=== PATIENT | female | born 1985 | race Caucasian/White ===

== ENCOUNTER 2023-12-05 12:46 | Emergency (ER) | payer OTHER ==
[~2023-12-05] VITALS: Ht 162.6 cm; Wt 81.7 kg
[2023-12-05] MEDS ORDERED: Diphth,Pertuss(Acell),Tet Vac 0.5 ML VIAL IM ONE ×2 (13:05→17:35)
[2023-12-05] MEDS ORDERED: Ibuprofen 400 MG Tab PO ONE (19:25)
[2023-12-05] MEDS ORDERED: Acetaminophen 500 MG Tab PO ONE (19:25)
[2023-12-05] MEDS ORDERED: Cephalexin Monohydrate 500 MG Cap PO ONE (20:15)
[2023-12-05] MEDS ORDERED: CEPH500 PO (20:16)
== END 2023-12-05 20:35 | disposition home or self-care (01) ==
LOC: ER 12:46
DX: S81.011A Laceration without foreign body, right knee, initial encounter (principal); F17.210 Nicotine dependence, cigarettes, uncomplicated; W01.0XXA Fall on same level from slipping, tripping and stumbling without subsequent striking against object, initial encounter; Z88.5 Allergy status to narcotic agent
CPT/HCPCS: 73562-RT; 90715; A9270